=== PATIENT | male | born 2005 | race Caucasian/White ===

== ENCOUNTER → 2024-10-29 11:24 | Outpatient (CLI) | payer OTHER, SELFPAY ==
--- NOTE | 2024-10-29 11:27 | DI.MRI.S_ITS ---
PROCEDURE: MR KNEE LT WO CON INDICATIONS: sprain of left knee TECHNIQUE: Noncontrast sagittal PD fast spin echo and T2 fast spin echo with fat saturation, sagittal 3-D FLASH with fat saturation; coronal T1 spin echo and PD fast spin echo with fat saturation, and axial PD fast spin echo with fat saturation through the knee. COMPARISON: None. FINDINGS: Image quality: Excellent. Menisci: The medial meniscus is unremarkable. In the lateral meniscus, there is horizontal longitudinal tear of the anterior horn, extending to the anterior root. Mild extrusion of the lateral meniscus body. Cruciate ligaments: The ACL is intact. The PCL is intact as well. Medial structures: Full-thickness tear of the proximal MCL. Lateral structures: The lateral collateral ligament, long and short heads of the biceps femoris tendon appear intact. The popliteus tendon appears normal; the popliteofibular ligament appears intact. The posterosuperior and anteroinferior popliteomeniscal fascicles appear intact. The arcuate and fabellofibular ligaments appear intact, on either side of the lateral inferior geniculate artery. Iliotibial band appears normal. Anterior structures: The quadriceps tendon is unremarkable. Mild tendinosis of the proximal patellar tendon and the distal patellar tendon. Trace prepatellar subcutaneous edema. Alignment of the patellofemoral compartment is anatomic. The medial and the lateral patello femoral ligaments are intact. Mild superolateral Hoffa's fat pad edema, raising concern for patellar maltracking. Bones and cartilage: The cartilage of the patellofemoral compartment is well maintained. The cartilage of the medial compartment is well maintained. There is full-thickness chondral fissuring in the lateral tibial plateau. There is marrow contusion of the peripheral aspect of the medial femoral condyle, and the medial tibial plateau. There is marked marrow edema of the tibial eminence, about the insertion of the ACL, favor reactive. Marked marrow contusion of the peripheral aspect of the lateral femoral condyle. No acute fracture. Joint space: Moderate knee effusion. No popliteal cyst. Small amount of fluid tracking along the superficial fascia of the posterior knee. No intra-articular body. Popliteal vasculature is unremarkable. IMPRESSION: 1. Tear of the anterior horn the lateral meniscus. 2. Full-thickness tear of the proximal MCL. 3. Findings suggestive of patellar maltracking. 4. Full-thickness chondral fissuring in the lateral tibial plateau. 5. Mild marrow contusion of the medial femoral condyle and the medial tibial plateau. Marked marrow contusion of the tibial eminence, the lateral femoral condyle. 6. Moderate knee effusion. Dictated by: Olivia Dunham M.D. on 10/29/2024 at 16:14 Approved by: Olivia Dunham M.D. on 10/29/2024 at 16:29
== END ==
PROVIDERS: PCP Student in an Organized Health Care Education/Training Program; Referring Provider Student in an Organized Health Care Education/Training Program; Visit Provider Student in an Organized Health Care Education/Training Program
DX: S83.522A Sprain of posterior cruciate ligament of left knee, initial encounter (principal); S83.282A Other tear of lateral meniscus, current injury, left knee, initial encounter; S83.412A Sprain of medial collateral ligament of left knee, initial encounter; M25.462 Effusion, left knee; S80.02XA Contusion of left knee, initial encounter
CPT/HCPCS: 73721